=== PATIENT | male | born 1985 | race African-American/Black ===

== ENCOUNTER 2019-12-30 20:29 | Emergency (ER) | payer MEDICAID, OTHER ==
[~2019-12-30] VITALS: Ht 193 cm; Wt 92.0 kg
[2019-12-30 20:41] VITALS: BP 144/94
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
[2019-12-30] MEDS ORDERED: HYDROcodone/APAP 7.5/325MG 1 TAB TABLET PO ONE (21:00)
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
[2019-12-30] MEDS ORDERED: HYDR-3165 PO (21:35)
[2019-12-30] MEDS ORDERED: HYDROmorphone 2 MG/ML VIAL IM ONE (22:15)
[2019-12-30] MEDS ORDERED: KETOROLAC 60 MG/2 ML VIAL. IM ONE (22:15)
[2019-12-30] MEDS ORDERED: ONDANSETRON ODT 4 MG TAB.RAPDIS. PO ONE (22:15)
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
== END 2019-12-30 22:50 | disposition home or self-care (01) ==
LOC: ER 20:29
DX: S02.652A Fracture of angle of left mandible, initial encounter for closed fracture (principal); E11.9 Type 2 diabetes mellitus without complications; J45.909 Unspecified asthma, uncomplicated; F17.200 Nicotine dependence, unspecified, uncomplicated; Z88.8 Allergy status to other drugs, medicaments and biological substances; Y04.0XXA Assault by unarmed brawl or fight, initial encounter; Y93.89 Activity, other specified; Y92.89 Other specified places as the place of occurrence of the external cause; Y99.8 Other external cause status
CPT/HCPCS: 70110; 70486; 96372; 99284; J1170; J1885; Q0162

== ENCOUNTER 2020-07-09 08:00 | Emergency (ER) | payer OTHER, MEDICAID ==
[~2020-07-09] VITALS: Ht 182.9 cm; Wt 84.0 kg
[~2020-07-09 08:00] MED LIST: HYDR-3165 PO
--- NOTE | 2020-07-09 08:35 | PHYS DOC ---
Past Medical History Past Medical History: Asthma, Diabetes-Type II Past Surgical History: No Surgical History Smoking Status: Current Every Day Smoker Alcohol Use: None Drug Use: None General Adult EDM: Chief Complaint: SORE THROAT HPI: HPI: Patient is a 35 year old male presents with a 3 to 4-day history of sore throat and swelling on the right side the next. Patient denies any fever or cough but has noted increased swelling predominantly on the right side of his neck as well as sore throat that is worse with swallowing. Patient has had minimal relief with cough drops and [id number] remedies. Patient had a negative Covid test last week before the symptoms started as he had a child on July 01. Review of Systems: Review of Systems: Constitutional: Denies fever or chills. [] Eyes: Denies change in visual acuity. [] HENT: Complains of sore throat Respiratory: Denies cough or shortness of breath. [] Cardiovascular: Denies chest pain or edema. [] GI: Denies abdominal pain, nausea, vomiting, bloody stools or diarrhea. [] : Denies dysuria. [] Musculoskeletal: Denies back pain or joint pain. [] Integument: Denies rash. [] Neurologic: Denies headache, focal weakness or sensory changes. [] Endocrine: Denies polyuria or polydipsia. [] Lymphatic: Complains of swollen neck glands Psychiatric: Denies depression or anxiety. [] Heart Score: Risk Factors: Risk Factors: DM, Current or recent (<one month) smoker, HTN, HLP, family history of CAD, obesity. Risk Scores: Score 0 - 3: 2.5% MACE over next 6 weeks - Discharge Home Score 4 - 6: 20.3% MACE over next 6 weeks - Admit for Clinical Observation Score 7 - 10: 72.7% MACE over next 6 weeks - Early Invasive Strategies Current Medications: Current Medications Clindamycin Phosphate 50 ml @ 100 mls/hr 1X ONCE IV Last administered on 07/09/20at 09:04; Start 07/09/20 at 08:45; Stop 07/09/20 at 09:14; Status DC Iohexol (Omnipaque 300 Mg/ml) 75 ml 1X ONCE IV Last administered on 07/09/20at 09:30; Start 07/09/20 at 09:30; Stop 07/09/20 at 09:31; Status DC Info (CONTRAST GIVEN -- Rx MONITORING) 1 each PRN DAILY PRN MC SEE COMMENTS; Start 07/09/20 at 09:45; Stop 07/11/20 at 09:44 Dexamethasone Sodium Phosphate (Decadron) 10 mg 1X ONCE IVP ; Start 07/09/20 at 10:30; Stop 07/09/20 at 10:32; Status DC Active Scripts Active [place] 7.5-325 Tablet (Acetaminophen/Hydrocodone Bitart) 1 Each Tablet 1 Tab PO PRN Q6HRS PRN Allergies: Allergies: Allergies Coded Allergies Type Severity Reaction Last Updated Verified risperidone Allergy Intermediate 05/15/14 Yes Physical Exam: PE: Constitutional: Well developed, well nourished, no acute distress, non-toxic appearance. [] HENT: Normocephalic, atraumatic, bilateral external ears normal, pharyngeal erythema and exudate present, tonsils enlarged bilaterally right greater than left, nose normal. [] Eyes: PERRLA, EOMI, conjunctiva normal, no discharge. [] Neck: No meningeal signs, enlarged anterior right greater than left cervical lymphadenopathy Cardiovascular:Heart rate regular rhythm, peripheral pulses intact cap refill is brisk Lungs & Thorax: Bilateral breath sounds clear, no respiratory distress Abdomen: Soft nondistended Skin: Warm, dry, no erythema, no rash. [] Back: No tenderness, no CVA tenderness. [] Extremities: No tenderness, no cyanosis, no clubbing, ROM intact, no edema. [] Neurologic: Alert and oriented X 3, normal motor function, normal sensory function, no focal deficits noted. [] Psychologic: Affect normal, judgement normal, mood normal. [] Current Patient Data: Labs: Laboratory Tests Test 07/09/20 08:30 07/09/20 08:40 Group A Streptococcus Rapid Positive White Blood Count 14.9 x10^3/uL Red Blood Count 6.12 x10^6/uL Hemoglobin 16.5 g/dL Hematocrit 51.0 % Mean Corpuscular Volume 83 fL Mean Corpuscular Hemoglobin 27 pg Mean Corpuscular Hemoglobin Concent 32 g/dL Red Cell Distribution Width 15.2 % Platelet Count 239 x10^3/uL Neutrophils (%) (Auto) 79 % Lymphocytes (%) (Auto) 9 % Monocytes (%) (Auto) 11 % Eosinophils (%) (Auto) 0 % Basophils (%) (Auto) 0 % Neutrophils # (Auto) 11.9 x10^3/uL Lymphocytes # (Auto) 1.3 x10^3/uL Monocytes # (Auto) 1.7 x10^3/uL Eosinophils # (Auto) 0.0 x10^3/uL Basophils # (Auto) 0.1 x10^3/uL Sodium Level 140 mmol/L Potassium Level 3.7 mmol/L Chloride Level 103 mmol/L Carbon Dioxide Level 25 mmol/L Anion Gap 12 Blood Urea Nitrogen 10 mg/dL Creatinine 0.9 mg/dL Estimated GFR (Cockcroft-Gault) 116.9 BUN/Creatinine Ratio 11 Glucose Level 126 mg/dL Calcium Level 9.8 mg/dL Total Bilirubin 0.8 mg/dL Aspartate Amino Transf (AST/SGOT) 16 U/L Alanine Aminotransferase (ALT/SGPT) 19 U/L Alkaline Phosphatase 92 U/L Total Protein 8.5 g/dL Albumin 3.9 g/dL Albumin/Globulin Ratio 0.8 Heterophil Agglutinins Negative Current Medications Medications (Trade) Dose Ordered Sig/Alena Route PRN Reason Start Time Stop Time Status Last Admin Dose Admin Clindamycin Phosphate 50 ml @ 100 mls/hr 1X ONCE IV 07/09/20 08:45 07/09/20 09:14 DC 07/09/20 09:04 Iohexol (Omnipaque 300 Mg/ml) 75 ml 1X ONCE IV 07/09/20 09:30 07/09/20 09:31 DC 07/09/20 09:30 Info (CONTRAST GIVEN -- Rx MONITORING) 1 each PRN DAILY PRN MC SEE COMMENTS 07/09/20 09:45 07/11/20 09:44 Dexamethasone Sodium Phosphate (Decadron) 10 mg 1X ONCE IVP 07/09/20 10:30 07/09/20 10:32 DC Vital Signs: Vital Signs Date Time Temp Pulse Resp B/P (MAP) Pulse Ox O2 Delivery O2 Flow Rate FiO2 07/09/20 08:20 97.7 97 22 178/94 (122) 99 Room Air 97.7 EKG: EKG: [] Radiology/Procedures: Radiology/Procedures: [] IMAGING REPORT Signed PATIENT: MAMADOU KERR ACCOUNT: [id number] : 1985 LOCATION: ER AGE: 35 SEX: M EXAM STATUS: REG ER ORD. PHYSICIAN: SHAHRIAR BLEVINS MD REASON: r/o bellman captain (jeanette on right) PROCEDURE: CT SOFT TISSUE NECK W/CONTRAST Examination: CT SOFT TISSUE NECK W/CONTRAST History: Sore throat especially on the right / Spl. Instructions: omni 300 70ml / History: Comparison/Correlation: None Findings: Axial images of the neck were obtained following IV contrast. Sagittal and coronal reformatted images were provided. Imaging was performed from the supraorbital level to the aortic arch level. Orbits are unremarkable. Globes and optic nerves are normal. Extraocular muscles are unremarkable. Posterior fossa is normal. Large right maxillary sinus mucus retention cyst is present. Small left maxillary sinus mucous retention cyst also seen. Marked circumferential soft tissue swelling involving the nasopharynx and superior oropharynx is present. Right tonsil is diffusely enlarged. Effacement of the oropharynx and hypopharynx is evident. There is no loculated collection identified. Epiglottis is normal. True and false cords are symmetric. Parotid and submandibular glands are normal. Multiple operative changes present. A few are mildly enlarged. These are presumably reactive. Thyroid gland is unremarkable. Lung apices are unremarkable. There is reversal of cervical lordosis at C5-6. Mild anterolisthesis of C5 over C6 is present and presumably chronic. Anterior developmental or posttraumatic fusion of C5 and C6 vertebral bodies noted spurring is notable involving the C5 vertebral body at the superior endplate. Left C5-6 facet joint fusion is evident. Remodeling at left C4-5 facet joint noted. Advanced degenerative change of the right second costovertebral junction. Degenerative changes of the right sternoclavicular joint. Impression: Marked soft tissue swelling is present involving the nasopharynx and oropharynx. Enlargement of the right tonsil seen no loculated abscess collection or focal mass. Large lymph nodes are present and presumably reactive. Deformity of the lower cervical spine which is chronic in appearance. Correlate with history. PQRS Compliance Statement: One or more of the following individualized dose reduction techniques were utilized for this examination: 1. Automated exposure control 2. Adjustment of the mA and/or kV according to patient size 3. Use of iterative reconstruction technique Electronically signed by: Marlon Jay MD (07/09/2020 10:22 AM) [id number] DICTATED and SIGNED BY: MARLON JAY MD DATE: 07/09/20 1022 Course & Med Decision Making: Course & Med Decision Making Pertinent Labs and Imaging studies reviewed. (See chart for details) [] 35-year-old male presents with a sore throat. Patient has a large right tonsil therefore a CT was done to rule out peritonsillar abscess. Fortunately patient does not have a peritonsillar abscess at this time but I discussed with him return precautions that would make him want to return. Patient given dose of steroids as well as IV antibiotics here patient was sent home on penicillin. Return precautions given. MIPS measure: Strep test checked before antibiotics administered Dragon Disclaimer: Dragon Disclaimer: This electronic medical record was generated, in whole or in part, using a voice recognition dictation system. Departure Departure Impression: Primary Impression: Strep pharyngitis Disposition: 01 DC HOME SELF CARE/HOMELESS Condition: STABLE Referrals: UNKNOWN PCP NAME (PCP) [facility] [address] [place] [address] [facility] [address] [place] [address] [facility] [address] Patient Instructions: Strep Throat Additional Instructions: EMERGENCY DEPARTMENT GENERAL DISCHARGE INSTRUCTIONS THANK YOU for coming to [facility] Emergency Department (ED) today and trusting us with your care. We trust that you had a positive experience in our Emergency Department. If you wish to speak to the department Management you can contact the finishing department supervisor at . YOUR FOLLOW UP INSTRUCTIONS ARE FOLLOWS: Do you have a private doctor? If you do not have a private doctor, please ask for a resource list of physicians or clinics that may be able to assist you with follow up care. The Emergency Physician has interpreted your x-rays. The X-ray specialist will also review them. If there is a change in the findings you will be notified in 48 hours when at all possible. A lab test or lab culture may have been done, your results will be reviewed and you will be notified if you need a change in treatment. ADDITIONAL INSTRUCTIONS AND INFORMATION Your care today has been supervised by a physician who is specially trained in emergency care. Many problems require more than one evaluation for a complete diagnosis and treatment. We recommend that you schedule your follow up appointment as recommended to ensure complete treatment of your illness or injury. If you are unable to obtain follow up care and continue to have a problem, or if your condition worsens we recommend that you return to the ED. We are not able to safely determine your condition over the phone nor are we able to give sound medical advice over the phone. For these safety reasons, if you call for medical advice we will ask you to come to the ED for further evaluation If you have any questions regarding these discharge instructions please call the ED at . SAFETY INFORMATION In the interest of safety, wellness, and injury prevention; we encourage you to wear your seatbelt, if you smoke; quit smoking, and we encourage your family to use protective helmet for bicycling and other sporting events that present an increased risk for head injury. IF YOUR SYMPTOMS WORSEN OR NEW SYMPTOMS DEVELOP, OR YOU HAVE CONCERNS ABOUT YOUR CONDITION; OR IF YOUR CONDITION WORSENS WHILE YOU ARE WAITING FOR YOUR FOLLOW UP APPOINTMENT; EITHER CONTACT YOUR PRIMARY CARE DOCTOR, THE PHYSICIAN WHOSE NAME AND NUMBER YOU WERE GIVEN, OR RETURN TO THE ED IMMEDIATELY. Scripts Penicillin V Potassium (PENICILLIN V POTASSIUM) 500 Mg Tablet 1 TAB PO QID, #40 TAB Prov: SHAHRIAR BLEVINS MD 07/09/20 SHAHRIAR BLEVINS MD Jul 09, 2020 08:35
[2020-07-09] MEDS ORDERED: CLINDAMYCIN 900MG PREMIX 50 ML IV ONE (08:45)
[2020-07-09 08:52] LABS: BASO # 0.1 x10^3/uL (0.0-0.2); BASO % 0 % (0-3); EOS % 0 % (0-3); HEMOGLOBIN 16.5 g/dL (13.0-17.5); LYMPH # 1.3 x10^3/uL (1.0-4.8); LYMPH % 9 % (24-48); MEAN CORPUSCULAR HEMOGLOBIN 27 pg (25-35); MEAN CORPUSCULAR HGB CONC 32 g/dL (31-37); MEAN CORPUSCULAR VOLUME 83 fL (79-100); MONO # 1.7 x10^3/uL (0.0-1.1); MONO % 11 % (0-9); NEUT # 11.9 x10^3/uL (1.8-7.7); NEUT % 79 % (31-73); PLATELET COUNT 239 x10^3/uL (140-400); RED BLOOD COUNT 6.12 x10^6/uL (4.30-5.70); RED CELL DISTRIBUTION WIDTH 15.2 % (11.5-14.5); WHITE BLOOD COUNT 14.9 x10^3/uL (4.0-11.0)
[2020-07-09 09:00] LABS: CALCIUM 9.8 mg/dL (8.5-10.1); CREATININE 0.9 mg/dL (0.7-1.3); GFR 116.9; POTASSIUM 3.7 mmol/L (3.5-5.1)
[2020-07-09 09:06] LABS: ALBUMIN 3.9 g/dL (3.4-5.0); ALBUMIN/GLOBULIN RATIO 0.8 (1.0-1.7); TOTAL BILIRUBIN 0.8 mg/dL (0.2-1.0); TOTAL PROTEIN 8.5 g/dL (6.4-8.2)
[2020-07-09 09:08] LABS: MONONUCLEOSIS PATIENT NEGATIVE (NEGATIVE)
[2020-07-09] MEDS ORDERED: IOHEXOL 300 MG/ML 100ML VIAL. IV ONE (09:30)
[2020-07-09] MEDS ORDERED: CONTRAST GIVEN. MC PRN (09:45)
--- NOTE | 2020-07-09 10:26 | RAD ---
Examination: CT SOFT TISSUE NECK W/CONTRAST History: Sore throat especially on the right / Spl. Instructions: omni 300 70ml / History: Comparison/Correlation: None Findings: Axial images of the neck were obtained following IV contrast. Sagittal and coronal reformatted images were provided. Imaging was performed from the supraorbital level to the aortic arch level. Orbits are unremarkable. Globes and optic nerves are normal. Extraocular muscles are unremarkable. Posterior fossa is normal. Large right maxillary sinus mucus retention cyst is present. Small left maxillary sinus mucous retention cyst also seen. Marked circumferential soft tissue swelling involving the nasopharynx and superior oropharynx is present. Right tonsil is diffusely enlarged. Effacement of the oropharynx and hypopharynx is evident. There is no loculated collection identified. Epiglottis is normal. True and false cords are symmetric. Parotid and submandibular glands are normal. Multiple operative changes present. A few are mildly enlarged. These are presumably reactive. Thyroid gland is unremarkable. Lung apices are unremarkable. There is reversal of cervical lordosis at C5-6. Mild anterolisthesis of C5 over C6 is present and presumably chronic. Anterior developmental or posttraumatic fusion of C5 and C6 vertebral bodies noted spurring is notable involving the C5 vertebral body at the superior endplate. Left C5-6 facet joint fusion is evident. Remodeling at left C4-5 facet joint noted. Advanced degenerative change of the right second costovertebral junction. Degenerative changes of the right sternoclavicular joint. Impression: Marked soft tissue swelling is present involving the nasopharynx and oropharynx. Enlargement of the right tonsil seen no loculated abscess collection or focal mass. Large lymph nodes are present and presumably reactive. Deformity of the lower cervical spine which is chronic in appearance. Correlate with history. PQRS Compliance Statement: One or more of the following individualized dose reduction techniques were utilized for this examination: 1. Automated exposure control 2. Adjustment of the mA and/or kV according to patient size 3. Use of iterative reconstruction technique Electronically signed by: Marlon Contreras MD (07/09/2020 10:22 AM) [id number]
[2020-07-09] MEDS ORDERED: DEXAMETHASONE SOD PHOS 20 MG/5 ML VIAL. IVP ONE (10:30)
[2020-07-09 10:45] VITALS: BP 169/102
[2020-07-09] MEDS ORDERED: PENI500T PO (10:45)
== END 2020-07-09 10:58 | disposition home or self-care (01) ==
LOC: ER 08:00
DX: J02.0 Streptococcal pharyngitis (principal); B95.0 Streptococcus, group A, as the cause of diseases classified elsewhere; R59.0 Localized enlarged lymph nodes; J45.909 Unspecified asthma, uncomplicated; E11.9 Type 2 diabetes mellitus without complications; F17.200 Nicotine dependence, unspecified, uncomplicated; Z88.8 Allergy status to other drugs, medicaments and biological substances
CPT/HCPCS: 36415; 70491; 80053; 85025; 86308; 87880; 96365; 96375; 99285; J1100; J3490; Q9967

== ENCOUNTER 2021-06-23 09:50 | Emergency (ER) | payer OTHER, MEDICAID ==
[~2021-06-23] VITALS: Ht 193 cm; Wt 106.8 kg
[~2021-06-23 09:50] MED LIST changes: +PENI500T PO
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
[2021-06-23] MEDS ORDERED: KETOROLAC 15 MG/ML VIAL. IM ONE (10:30)
[2021-06-23] MEDS ORDERED: ORPHENADRINE CITRATE 60 MG/2 ML VIAL. IM ONE (10:30)
[2021-06-23] MEDS ORDERED: LIDOCAINE (700MG/PATCH) PATCH. TD ONE (10:30)
[2021-06-23 11:22] VITALS: BP 149/102
[2021-06-23] MEDS ORDERED: LIDO700A21 TP (11:34)
[2021-06-23] MEDS ORDERED: IBUP-1007 PO (11:34)
[2021-06-23] MEDS ORDERED: ORPH100T PO (11:34)
== END 2021-06-23 11:47 | disposition home or self-care (01) ==
LOC: ER 09:50
DX: M54.6 Pain in thoracic spine (principal); M54.50 Low back pain, unspecified; G89.29 Other chronic pain; E11.9 Type 2 diabetes mellitus without complications; J45.909 Unspecified asthma, uncomplicated; Z87.891 Personal history of nicotine dependence; Z88.8 Allergy status to other drugs, medicaments and biological substances
CPT/HCPCS: 96372; 99284; J1885; J2360

== ENCOUNTER 2022-01-18 16:17 | Emergency (ER) | payer OTHER, MEDICAID ==
[~2022-01-18] VITALS: Ht 193 cm; Wt 106.7 kg
[~2022-01-18 16:17] MED LIST changes: +IBUP-1007 PO; +LIDO700A21 TP; +ORPH100T PO
[2022-01-18 17:55] VITALS: BP 141/71
[2022-01-18] MEDS ORDERED: CYCL10TA19 PO (18:35)
[2022-01-18] MEDS ORDERED: DICL50TA4 PO (18:35)
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
== END 2022-01-18 18:35 | disposition home or self-care (01) ==
LOC: ER 16:17
DX: Z04.1 Encounter for examination and observation following transport accident (principal); M79.602 Pain in left arm; J45.909 Unspecified asthma, uncomplicated; E11.9 Type 2 diabetes mellitus without complications; Z88.8 Allergy status to other drugs, medicaments and biological substances; V43.93XA Unspecified car occupant injured in collision with pick-up truck in traffic accident, initial encounter; Y93.89 Activity, other specified; Y92.481 Parking lot as the place of occurrence of the external cause; Y99.8 Other external cause status
CPT/HCPCS: 99283